=== PATIENT | female | born 1975 | race Caucasian/White ===

== ENCOUNTER → 2017-02-27 | Outpatient (REF) | payer BC ==
[~2017-02-27] MED LIST: /DULO30CA OR; AMIT; AMIT10TA2 OR; AMIT25TA2 OR; BENI PO; BENI20TA11 OR; ESTR3TA OR; LOPR50TA OR; METO; MUL; MULTIVIT PO; PRIL; PRIL20CA OR; [UNRECOGNIZED DRUG - CODE]; [UNRECOGNIZED DRUG - OTHER]; [UNRECOGNIZED DRUG - OTHER]; [UNRECOGNIZED DRUG - OTHER] PO
== END ==
LOC: M SMT 12:50
PROVIDERS: ATTEND Nurse Practitioner Family
DX: R31.9 Hematuria, unspecified (principal)

== ENCOUNTER → 2017-04-22 | Outpatient (CLI) | payer BC ==
[2017-04-22 18:23] LABS: ANION GAP 5 MEQ/L (8-16); BLOOD UREA NITROGEN 13 MG/DL (7-18); CALCIUM LEVEL 9.2 MG/DL (8.5-10.1); CARBON DIOXIDE LEVEL 33 MEQ/L (21-32); CHLORIDE LEVEL 102 MEQ/L (98-107); CREATININE FOR GFR 0.69 MG/DL (0.55-1.02); GLOMERULAR FILTRATION RATE > 60.0 (>58); GLUCOSE, FASTING 76 MG/DL (70-105); POTASSIUM SERUM 4.6 MEQ/L (3.5-5.1); SODIUM LEVEL 140 MEQ/L (136-145)
== END ==
LOC: M SMT 14:45
PROVIDERS: ATTEND Urology
DX: R31.0 Gross hematuria (principal)

== ENCOUNTER → 2017-04-30 | Outpatient (CLI) | payer BC ==
[~2017-04-30] MED LIST changes: +ISOVUE-370 76% 100ML VIAL (Q9967) As Ordered ONE
--- NOTE | 2017-05-01 04:45 | REP ---
Clinical: Hematuria. Technique: Axial precontrast, contrast enhanced, and delayed images of the abdomen and pelvis using 100 ml Isovue 370 intravenous contrast material with coronal and sagittal re-formations. Findings: Evaluation of the urinary tract system demonstrates partial duplication of the right renal collecting system as identified from the kidneys through the mid right ureters which appear diffuse at approximately L4 level as well as possible complete duplication of the left renal collecting system with visualization of two separate ureters into the pelvis but limited further evaluation due to lack of contrast enhancement of the ureters in the pelvis to the bladder. Associated mild hydronephrosis to the right upper and lower renal moieties is appreciated and no evidence for hydronephrosis involving the left renal moieties. The bladder is grossly unremarkable. A solitary 3 mm nonobstructing right renal calculus is identified (image [id number]). Liver, spleen, pancreas, and bilateral adrenal glands are normal. The patient is status post cholecystectomy, gastric bypass surgery, and hysterectomy. The enteric system is without obstruction or acute inflammatory process. No ascites. No free air. No obvious adenopathy. Abdominal aorta and vasculature appears normal. Surrounding musculoskeletal structures are intact. Impression: 1. 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 2. 3 mm nonobstructing right renal calculus. Signed by Brian Lynn MD 05/01/2017 04:37 A
== END ==
LOC: M RAD 16:34
PROVIDERS: ATTEND Urology
DX: R31.0 Gross hematuria (principal); N20.0 Calculus of kidney
CPT/HCPCS: 74178; Q9967

== ENCOUNTER → 2020-03-12 | Outpatient (CLI) | payer BC ==
[~2020-03-12] MED LIST changes: -/DULO30CA OR; +ADDE10CA3 PO; +BUSP10TA PO; +CALC600T5 PO; +CLAR10CA3 PO; +COQ-100C5 PO; +CVS1CAP2 PO; +CYAN500T8 PO; +CYMB1CAP5 OR; +DILT60TA PO; +DOXY-350 PO; +IMIT50TA PO; -ISOVUE-370 76% 100ML VIAL (Q9967) As Ordered ONE; +LEVO50TA5 PO; +LEXA1TAB PO; +MAGN200T PO; +MAGO400T2 PO; +MIGRTAB8 PO; +MONT10TA4 PO; +MULT1TAB7 PO; +NORT50CA PO; +PERCOCET PO; +PREM0.9T PO; +REGL5TAB2 PO; +RIBO400T PO; +VITAD1000T PO
== END ==
LOC: M LABSMTC 11:58
PROVIDERS: ATTEND Anesthesiology
DX: Z03.818 Encounter for observation for suspected exposure to other biological agents ruled out (principal); Z11.59 Encounter for screening for other viral diseases
CPT/HCPCS: C9803; U0003

== ENCOUNTER 2020-03-15 08:06 | Day surgery (SDC) | payer BC ==
[~2020-03-15] VITALS: Ht 174 cm; Wt 77.6 kg
[~2020-03-15 08:06] MED LIST changes: +LR 1,000 ML IV ONE
[2020-03-15 08:51] LABS: HEMATOCRIT 39.5 % (36.0-47.0); HEMOGLOBIN 13.5 g/dl (12.0-15.5); MEAN CORPUSCULAR HEMOGLOBIN 30.3 pg (27.0-33.0); MEAN CORPUSCULAR HGB CONC 34.2 g/dl (32.0-36.5); MEAN CORPUSCULAR VOLUME 88.6 fl (80.0-96.0); PLATELET COUNT, AUTOMATED 225 10^3/uL (150-450); RED BLOOD COUNT 4.46 10^6/uL (4.00-5.40); WHITE BLOOD COUNT 4.8 10^3/uL (4.0-10.0)
[2020-03-15 09:13] LABS: BLOOD UREA NITROGEN 10 MG/DL (7-18); CALCIUM LEVEL 8.6 MG/DL (8.5-10.1); CARBON DIOXIDE LEVEL 31 MEQ/L (21-32); CHLORIDE LEVEL 104 MEQ/L (98-107); CREATININE FOR GFR 0.72 MG/DL (0.55-1.30); GLOMERULAR FILTRATION RATE > 60.0 (>58); GLUCOSE, FASTING 85 MG/DL (70-100); POTASSIUM SERUM 4.2 MEQ/L (3.5-5.1); SODIUM LEVEL 141 MEQ/L (136-145)
[2020-03-15] MEDS ORDERED: SCOPOLAMINE 1MG TRANSDERMAL PATCH As Ordered ONE (09:14)
[2020-03-15] MEDS ORDERED: SCOPOLAMINE 1MG TRANSDERMAL PATCH TOP ONE (09:30)
[2020-03-15] MEDS ORDERED: MIDAZOLAM INJ 2MG/2ML VIAL (J2250 PER 1MG) As Ordered ONE (09:56)
[2020-03-15] MEDS ORDERED: dexameTHASONE 4 MG/ML 1ML VIAL (J1100 PER 1MG) As Ordered ONE ×2 (09:56→10:31)
[2020-03-15] MEDS ORDERED: ONDANSETRON 4MG/2ML VIAL As Ordered ONE (09:56)
[2020-03-15] MEDS ORDERED: LIDOCAINE 2% 100MG/5ML SDV (FOR ANES.) As Ordered ONE (09:56)
[2020-03-15] MEDS ORDERED: ROCURONIUM BROMIDE 50 MG/5 ML VIAL As Ordered ONE (09:56)
[2020-03-15] MEDS ORDERED: fentaNYL 100 MCG/2 ML INJECTION (J3010) As Ordered ONE (09:56)
[2020-03-15] MEDS ORDERED: OXYMETAZOLINE NASAL SPRAY (AFRIN) As Ordered ONE (09:57)
[2020-03-15] MEDS ORDERED: propofoL 200 MG/20 ML VIAL As Ordered ONE (09:57)
[2020-03-15] MEDS ORDERED: LIDOCAINE W/EPINEPHRINE 1% 20ML VIAL As Ordered ONE (09:57)
[2020-03-15] MEDS ORDERED: METHYLENE BLUE 0.5% (5MG/ML) 10 ML AMP (PROVAYBLUE)(Q9968 PER 1MG) As Ordered ONE (09:58)
[2020-03-15] MEDS ORDERED: LACRILUBE (AKWA TEARS) OPHTH OINT 3.5 GM As Ordered ONE (10:05)
[2020-03-15] MEDS ORDERED: SUGAMMADEX SODIUM 500 MG/5 ML VIAL (BRIDION) As Ordered ONE (10:34)
[2020-03-15] MEDS ORDERED: SODIUM CHLORIDE 0.9% NASAL GEL 15GM (AYR) As Ordered ONE (10:37)
[2020-03-15] MEDS: oxyCODONE 5MG TAB PO PRN ×2 (11:41→12:09)
[2020-03-15] MEDS ORDERED: LR 1,000 ML IV SCH (11:45)
[2020-03-15] MEDS ORDERED: IBUPROFEN 800 MG TAB PO PRN (11:45)
[2020-03-15] MEDS ORDERED: fentaNYL 100 MCG/2 ML INJECTION (J3010) IV PRN (11:45)
[2020-03-15] MEDS ORDERED: PERCOCET 5MG/325MG TAB PO PRN (11:45)
[2020-03-15] MEDS ORDERED: HYDROMORPHONE HCL 0.5 MG/ 0.5 ML SYRINGE (J1170 PER 1) IV PRN (11:45)
[2020-03-15] MEDS ORDERED: ONDANSETRON 4MG/2ML VIAL IV PRN (11:45)
[2020-03-15 13:45] VITALS: BP 159/80
--- NOTE | 2020-03-15 18:52 | ECGEPIP ---
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
--- NOTE | 2020-03-20 11:53 | RO ---
DATE OF PROCEDURE: 03/15/2020 PREOPERATIVE DIAGNOSES: Nasoseptal deviation with <<0:06>> . POSTOPERATIVE DIAGNOSES: Nasoseptal deviation with . PROCEDURE: Septoplasty and partial reduction inferior turbinates. SURGEON: Dr. Carlos Alberto Cope [employer]PER[employer]OR [employer] ROOM: ANESTHESIA: INDICATIONS: This is a 44-year-old patient with a long history of left-sided nasal congestion associated with left maxillofacial pain and headache. Examination demonstrated severe septal deformity impaling the left inferior middle turbinates associated with edema of the turbinates on the side. DESCRIPTION OF PROCEDURE: Satisfactory general endotracheal anesthesia administered. Pharyngeal pack placed. The nose was prepared for surgery by placing cotton-soaked pledgets with Afrin solution to nasal cavity bilaterally. 1% Xylocaine with 1:100,000 epinephrine was used to inject into the nasal septum and inferior turbinates. A great deal of septal deformity was in the caudal septum and in fact the caudal end of the septum was displaced into the right nasal vestibule as it swung to the left. A Yang incision was made on the left side of the nose. A mucoperichondrial flap and envelope was created on the left side of the nasal septum and carried down to the junction of the bony and cartilaginous septum. This was then with an elevator, and an envelope was then created on the right side of the septum. A Austin scissors was used to make a cut high in the perpendicular plate in the midportion of the vomer, and a central segment of the bony septum was resected. Next, with the round knife on the Katherin elevator, a strip of cartilage was resected from the floor of the nose, mobilizing the quadrilateral cartilage and creating a swinging door. Then, a central segment of cartilaginous septum was resected, preserving a 1 cm dorsal and caudal strut. Double-action rongeur was used to take down deflected portions of the perpendicular plate, as well. Finally, the maxillary crest spur was taken down after elevating mucoperiosteum off both sides of it with a chisel. A segment of the resected cartilage was morselized and placed back into the septal envelope. The incision was closed using an interrupted #5-0 chromic suture. Then, a #4-0 plain suture was placed in a [id number] fashion through the two leaves of mucoperichondrium to appose them. A reduction of the caudal strut was done but a 1 cm strut was preserved for support of columella. For turbinate reduction, the left inferior turbinate was already somewhat atrophic and small. Attention directed to the right inferior turbinate. It was medially infractured. Then, a Coblator probe was used to make two parallel Coblation lines for 10 seconds each and once this was done the turbinate was outfractured. Smith splints were placed into the nose and sewn to the columella with a #2-0 Prolene suture. The pharyngeal pack was removed. Throat suctioned. The patient was awakened, extubated and sent to recovery room in satisfactory condition. She will be seen back in the office in 2 days for splint removal.
== END 2020-03-15 14:02 | disposition home or self-care (01) ==
LOC: M SDC 08:06
PROVIDERS: ATTEND Specialist
DX: J34.2 Deviated nasal septum (principal); J31.0 Chronic rhinitis; I10 Essential (primary) hypertension; E03.9 Hypothyroidism, unspecified; Z98.84 Bariatric surgery status; K21.9 Gastro-esophageal reflux disease without esophagitis; F41.9 Anxiety disorder, unspecified; F32.9 Major depressive disorder, single episode, unspecified; G43.909 Migraine, unspecified, not intractable, without status migrainosus; Z79.899 Other long term (current) drug therapy
CPT/HCPCS: 30140; 30520; 36415; 80048; 85027; 88300; 93005; J1100; J2250; J2405; J3010; Q9968

== ENCOUNTER → 2022-07-18 | Outpatient (REF) ==
[~2022-07-18] MED LIST changes: -CALC600T5 PO; +CALC600T61 PO; +CYAN500T14 PO; -CYAN500T8 PO; -LR 1,000 ML IV ONE; -MONT10TA4 PO; +MONT10TA97 PO; +VITA100093 PO; -VITAD1000T PO
== END ==
LOC: M LAB 17:18
PROVIDERS: ATTEND Nurse Practitioner Adult Health
DX: Z02.1 Encounter for pre-employment examination (principal)

== ENCOUNTER → 2023-02-26 | Outpatient (CLI) | payer BC ==
[~2023-02-26] MED LIST changes: -DOXY-350 PO; +DOXY-444 PO
[2023-02-26 12:53] LABS: BASO % 0.4 % (0.0-1.0); HEMATOCRIT 39.7 % (36.0-47.0); HEMOGLOBIN 12.9 g/dl (12.0-15.5); LYMPH # 1.2 10^3/uL (1.5-5.0); LYMPH % 22.2 % (24.0-44.0); MEAN CORPUSCULAR HEMOGLOBIN 29.7 pg (27.0-33.0); MEAN CORPUSCULAR HGB CONC 32.5 g/dl (32.0-36.5); MEAN CORPUSCULAR VOLUME 91.3 fl (80.0-96.0); MONO # 0.4 10^3/uL (0.0-0.8); NEUTROPHILS # 3.6 10^3/uL (1.5-8.5); PLATELET COUNT, AUTOMATED 226 10^3/uL (150-450); RED BLOOD COUNT 4.35 10^6/uL (4.00-5.40); WHITE BLOOD COUNT 5.2 10^3/uL (4.0-10.0)
[2023-02-26 13:25] LABS: ALBUMIN 3.8 G/DL (3.2-5.2); ALKALINE PHOSPHATASE 93 U/L (46-116); ALT/SGPT 31 U/L (7.0-40); AST/SGOT 25 U/L (<34); BILIRUBIN,TOTAL 0.5 MG/DL (0.3-1.2); BLOOD UREA NITROGEN 16 MG/DL (9-23); CARBON DIOXIDE LEVEL 34 MMOL/L (20-31); CHLORIDE LEVEL 104 MMOL/L (98-107); CHOLESTEROL LEVEL 210 MG/DL (<200); CHOLESTEROL RISK RATIO 2.12 (<5); GLOMERULAR FILTRATION RATE > 60.0 (>58); GLUCOSE, FASTING 82 MG/DL (60-100); HDL CHOLESTEROL 98.6 MG/DL (>40); LDL CHOLESTEROL 98.4 MG/DL (<100); NON-HDL-C 111.4 MG/DL; POTASSIUM SERUM 4.1 MMOL/L (3.5-5.1); SODIUM LEVEL 137 MMOL/L (136-145); TOTAL PROTEIN 6.5 G/DL (5.7-8.2); TRIGLYCERIDES LEVEL 65 MG/DL (<150)
[2023-02-26 13:28] LABS: THYROID STIMULATING HORMONE 2.713 uIU/ML (0.55-4.78)
== END ==
LOC: M WUC 09:57
PROVIDERS: ATTEND Physician Assistant
DX: I10 Essential (primary) hypertension (principal); E78.5 Hyperlipidemia, unspecified; E03.9 Hypothyroidism, unspecified

== ENCOUNTER → 2023-10-09 | Outpatient (CLI) | payer BC | LOC: M RAD 07:11 | PROVIDERS: ATTEND Physician Assistant | DX: R14.0 Abdominal distension (gaseous) (principal); R10.84 Generalized abdominal pain; K76.0 Fatty (change of) liver, not elsewhere classified ==

== ENCOUNTER → 2023-10-11 | Outpatient (CLI) | payer BC ==
[2023-10-11 10:31] LABS: HEMATOCRIT 42.3 % (36.0-47.0); HEMOGLOBIN 14.1 g/dl (12.0-15.5); MEAN CORPUSCULAR HEMOGLOBIN 29.7 pg (27.0-33.0); MEAN CORPUSCULAR HGB CONC 33.3 g/dl (32.0-36.5); MEAN CORPUSCULAR VOLUME 89.2 fl (80.0-96.0); PLATELET COUNT, AUTOMATED 247 10^3/uL (150-450); RED BLOOD COUNT 4.74 10^6/uL (4.00-5.40)
[2023-10-11 10:56] LABS: ALBUMIN 3.8 G/DL (3.2-5.2); ALKALINE PHOSPHATASE 108 U/L (46-116); ALT/SGPT 34 U/L (7.0-40); AST/SGOT 24 U/L (<34); BILIRUBIN,TOTAL 0.5 MG/DL (0.3-1.2); BLOOD UREA NITROGEN 14 MG/DL (9-23); CALCIUM LEVEL 9.2 MG/DL (8.5-10.1); CARBON DIOXIDE LEVEL 34 MMOL/L (20-31); CHLORIDE LEVEL 103 MMOL/L (98-107); CREATININE FOR GFR 0.72 MG/DL (0.55-1.30); GLOMERULAR FILTRATION RATE > 60.0 (>51); GLUCOSE, FASTING 95 MG/DL (60-100); IRON (FE) 132 UG/DL (50-170); PERCENT SATURATION 32.8 % (13.2-45.0); POTASSIUM SERUM 4.3 MMOL/L (3.5-5.1); SODIUM LEVEL 140 MMOL/L (136-145); TOTAL IRON BINDING CAPACITY 402 UG/DL (250-425); TOTAL PROTEIN 6.9 G/DL (5.7-8.2)
[2023-10-11 10:58] LABS: FOLATE > 24.0 NG/ML (>5.4)
[2023-10-11 11:42] LABS: VITAMIN B12 LEVEL > 2000 PG/ML (211-911)
[2023-10-13 07:37] LABS: WHITE BLOOD COUNT 5.7 10^3/uL (4.0-10.0)
== END ==
LOC: M LAB 09:42
PROVIDERS: ATTEND Physician Assistant
DX: R53.83 Other fatigue (principal); D51.9 Vitamin B12 deficiency anemia, unspecified; I10 Essential (primary) hypertension